=== PATIENT | male | born 1995 | race Caucasian/White ===

== ENCOUNTER 2017-01-02 18:16 | Emergency (ER) | payer OTHER ==
[2017-01-02] MEDS ORDERED: LET GEL TOPICAL 1 EA SYR TP ONE (18:26)
[2017-01-02 18:30] VITALS: BP 122/60; PULSE 75; RESP 20; TEMP 98; O2SAT 95
[2017-01-02] MEDS ORDERED: TDAP ADULT 0.5 ML INJ (BOOSTRIX) IM ONE (18:43)
--- NOTE | 2017-01-02 19:01 | EDPHY ---
H & P Stated Complaint: walking along dumpster and caught arm on metal shaving- removed it Time Seen by Provider: 01/02/17 18:21 HPI/ROS: CHIEF COMPLAINT: Cut on arm HISTORY OF PRESENT ILLNESS: This is a 21-year-old male with a history of type 1 diabetes and bipolar disease who presents with a laceration on his right forearm that was sustained about 5 hours ago. He cut the arm on a piece of metal that was in a dumpster. There was initially a metal splinter in the wound. He removed this himself. He is concerned that there might still be a small foreign body. He is not certain of his tetanus status. No other injuries. He denies numbness or weakness. REVIEW OF SYSTEMS: A ten point review of systems was performed and is negative with the exception of the items mentioned in the HPI. Past medical history: 1. Type 1 diabetes 2. Bipolar disease 3. TMJ Social history: He is a high-school graduate and is between high school and college. No tobacco or alcohol use. He lives with apparent. General Appearance: Alert. Vital signs reviewed. Respiratory: Lungs are clear to auscultation; no wheezes, rales, or rhonchi. Cardiovascular: Regular rate and rhythm; no murmur, rub, or gallop. Gastrointestinal: Abdomen is soft and nontender. Skin: Warm and dry, no rashes on exposed skin, normal color. Back: Nontender to palpation over the thoracolumbar spine. No CVAT. Extremities: There is a 1 cm superficial laceration on the posterior right forearm. There appears to be a very small retained foreign body. No active bleeding. Neurological: Alert and oriented. Moving all four extremities easily and equally. Sensation intact to light touch over the right upper extremity. Optoelectronic Technician strength 5 /5. Pulses: 2+ radial pulse on the right. Psychiatric: Normal affect. - Personal History Current Tetanus Diphtheria and Acellular Pertussis (TDAP): Yes - Medical/Surgical History Hx Asthma: No Hx Chronic Respiratory Disease: No Hx Diabetes: Yes Hx Cardiac Disease: No Hx Renal Disease: No Hx Cirrhosis: No Hx Alcoholism: No Hx HIV/AIDS: No Hx Splenectomy or Spleen Trauma: No Other PMH: type 1 diabetes. bipolar, anxiety - Social History Smoking Status: Never smoked Constitutional: Initial Vital Signs Temperature (C) 36.6 C 01/02/17 18:26 Heart Rate 75 08/25/17 18:26 Respiratory Rate 20 01/02/17 18:26 Blood Pressure 122/60 H 01/02/17 18:26 O2 Sat (%) 95 01/02/17 18:26 O2 Delivery Mode Room Air Allergies/Adverse Reactions: Penicillins Allergy (Verified 08/25/15 11:05) Home Medications: Medication Instructions Recorded Gabapentin [Neurontin 100 MG (RX)] 2 tab 08/28/13 LORazepam [Ativan (*)] 08/28/13 Propranolol HCl [Inderal 20mg (*)] 08/28/13 Humalog 08/25/15 Lantus 100 UNITS/ML (RX) 08/25/15 Levalbuterol Inhaler [Xopenex Hfa 2 puffs IH TID #1 mdi 08/25/15 Inhaler (RX)] [place] Carbonate 08/25/15 Zyprexa 08/25/15 Medical Decision Making ED Course/Re-evaluation: Superficial laceration on his arm was cleaned per protocol. Using magnification there was a small speck of what appeared to be retained metal at the proximal aspect of the wound. This was removed with tweezers. Wound edges were approximated with a single Steri-Strip. Procedure performed by me. Differential Diagnosis: I considered a differential diagnosis of laceration, retained foreign body, muscle injury, vascular injury, tendon injury. - Data Points Medications Given: Discontinued Medications Tetracaine/Epinephrine/Lidocaine (Let Gel Topical) 1 ea TP EDNOW ONE Stop: 01/02/17 18:27 Last Admin: 01/02/17 18:42 Dose: Not Given Departure - Departure Disposition: Home, Routine, Self-Care Clinical Impression: Laceration Condition: Good Instructions: Laceration (ED) Additional Instructions: The Steri-Strips that was placed on your cut will fall off on its own. After that you can apply a Band-Aid if needed. Watch carefully for signs of infection such as fever, redness, swelling, increased pain, warmth, and drainage. You received a tetanus booster today. [facility]errals: [facility] [Other] - As per Instructions
== END 2017-01-02 19:11 | disposition home or self-care (01) ==
LOC: CED 18:16
DX: S51.811A Laceration without foreign body of right forearm, initial encounter (principal); E10.9 Type 1 diabetes mellitus without complications; Z23 Encounter for immunization; W26.8XXA Contact with other sharp object(s), not elsewhere classified, initial encounter

== ENCOUNTER 2017-05-28 15:01 | Emergency (ER) | payer OTHER ==
[2017-05-28 15:08] VITALS: TEMP 98
--- NOTE | 2017-05-28 15:10 | EDPHY ---
H & P Stated Complaint: c/o inhaling Elías En[place] Thinner @ 1230- c/o ST/N/Eyes sting HPI/ROS: HPI CHIEF COMPLAINT: Inhaled pain Thinner. HISTORY OF PRESENT ILLNESS: This patient 21-year-old male, he is an insulin- dependent diabetic type 1 with an insulin pump, last known blood sugar 200 per the patient. He presents emergency room after states that he inhaled paint thinner by accident. 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 Decided to put the respirator on he thinks the respirator was clogged. He states immediately after placing the respirator on he started have some coughing and some burning in his chest. And some throat irritation and Eye burning. He called poison Control about this and they recommend that he goes outside to get fresh air, additionally recommends hot steamy shower, however patient after doing this still felt some burning in his chest he called poison Control back in as recommended have evaluation in the emergency room. Upon arrival to the emergency room the patient appears well nontoxic in no acute distress has no respiratory symptoms. Vital signs are stable. No hypoxia. Clear lung sounds bilaterally. I do not appreciate any significant wheezing. No trouble swallowing. Given the throat burning and chest burning have offered him a GI cocktail DuoNeb breathing treatment and re-evaluate him. Past Medical History: No significant medical history except for insulin- dependent diabetes, bipolar disorder, TMJ. Past Surgical History: Denies any recent surgery. Social History: Denies drugs alcohol tobacco. Family History: Noncontributory ROS REVIEW OF SYSTEMS: A comprehensive 10 point review of systems is otherwise negative aside from elements mentioned in the history of present illness. Exam Constitutional appears well nontoxic in no acute distress triage nursing summary reviewed, vital signs reviewed, awake/alert. Eyes normal conjunctivae and sclera, EOMI, PERRLA. HENT posterior pharynx is normal, no stridor, no visible swelling, normal inspection, atraumatic, moist mucus membranes, no epistaxis, neck supple/ no meningismus, no raccoon eyes. Respiratory clear to auscultation bilaterally, normal breath sounds, no respiratory distress, no wheezing. Cardiovascular rate normal, regular rhythm, no murmur, no edema, distal pulses normal. Gastrointestinal soft, non-tender, no rebound, no guarding, normal bowel sounds, no distension, no pulsatile mass. Genitourinary no CVA tenderness. Musculoskeletal no midline vertebral tenderness, full range of motion, no calf swelling, no tenderness of extremities, no meningismus, good pulses, neurovascularly intact. Skin pink, warm, & dry, no rash, skin atraumatic. Neurologic awake, alert and oriented x 3, AAOx3, moves all 4 extremities equally, motor intact, sensory intact, CN II-XII intact, normal cerebellar, normal vision, normal speech. Psychiatric normal mood/affect. Heme/Lymph/Immune no lymphadenopathy. Differential Diagnosis: Includes but is not limited to in a particular order inhalant irritation, airway swelling, reactive airway disease, bronchitis, spasm , airway burn Medical Decision Making: Plan for this patient DuoNeb breathing treatment, GI cocktail and re-evaluate. Re-evaluation: 1608: Patient is feeling better after DuoNeb breathing treatment. Requesting go home. Vital signs are stable. No acute distress. Albuterol inhaler prescribed. Return precautions discussed Source: Patient - Personal History Current Tetanus Diphtheria and Acellular Pertussis (TDAP): Yes - Medical/Surgical History Hx Asthma: No Hx Chronic Respiratory Disease: No Hx Diabetes: Yes Hx Cardiac Disease: No Hx Renal Disease: No Hx Cirrhosis: No Hx Alcoholism: No Hx HIV/AIDS: No Hx Splenectomy or Spleen Trauma: No Other PMH: type 1 diabetes. bipolar, anxiety - Social History Smoking Status: Never smoked Constitutional: Initial Vital Signs Temperature (C) 36.6 C 05/28/17 15:05 Heart Rate 87 05/28/17 15:05 Respiratory Rate 18 05/28/17 15:05 Blood Pressure 119/85 H 05/28/17 15:05 O2 Sat (%) 97 05/28/17 15:05 O2 Delivery Mode Room Air Allergies/Adverse Reactions: Penicillins Allergy (Verified 08/25/15 11:05) Home Medications: Medication Instructions Recorded Humalog 08/25/15 Levalbuterol Inhaler [Xopenex Hfa 2 puffs IH TID #1 mdi 08/25/15 Inhaler (RX)] [place] Carbonate 08/25/15 Zyprexa 08/25/15 Albuterol [Proventil Inhaler HFA 1 - 2 puffs IH Q4H #1 mdi 05/28/17 (*)] DESVENLAFAXINE SUCCINATE [Pristiq] 50 mg PO 05/28/17 Medical Decision Making - Data Points Medications Given: Discontinued Medications Al Hydroxide/Mg Hydroxide (Maalox Susp) 30 ml PO ONCE ONE Stop: 05/28/17 15:19 Last Admin: 05/28/17 15:55 Dose: Not Given Albuterol/Ipratropium (Duoneb) 3 ml IH EDNOW ONE Stop: 05/28/17 15:37 Last Admin: 05/28/17 15:51 Dose: 3 ml Hyoscyamine Sulfate (Levsin, Hyomax-Sl) 0.25 mg PO ONCE ONE Stop: 05/28/17 15:19 Last Admin: 05/28/17 15:54 Dose: Not Given Lidocaine (Lidocaine 2% Viscous) 15 ml PO ONCE ONE Stop: 05/28/17 15:19 Last Admin: 05/28/17 15:54 Dose: Not Given Departure - Departure Disposition: Home, Routine, Self-Care Clinical Impression: Inhalation injury Condition: Good Instructions: Albuterol (By breathing), Pneumonitis (ED) Additional Instructions: 1. Return emergency room immediately if he develops worsening shortness of breath or trouble breathing. Trouble swallowing. Fever vomiting. 2. Albuterol inhaler 2 puffs every 4-6 hours as needed. 3. Rest, lots of fluids. 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 [facility]errals[facility] [Other] - As per Instructions Prescriptions: Albuterol [Proventil Inhaler HFA (*)] 1 - 2 puffs IH Q4H #1 mdi
[2017-05-28] MEDS ORDERED: HYOSCYAMINE SULFATE 0.125 MG TAB PO ONE (15:18)
[2017-05-28] MEDS ORDERED: MAG HYDROX/AL HYDROX/SIMETH 30 ML UDCUP PO ONE (15:18)
[2017-05-28] MEDS ORDERED: LIDOCAINE 2% VISCOUS 15 ML UDCUP PO ONE (15:18)
[2017-05-28] MEDS ORDERED: IPRATROPIUM/ALBUTEROL 3 ML DEYVIAL IH ONE (15:36)
[2017-05-28 16:22] VITALS: BP 131/77; PULSE 86; RESP 16; O2SAT 96
== END 2017-05-28 16:20 | disposition home or self-care (01) ==
LOC: CED 15:01
DX: T65.891A Toxic effect of other specified substances, accidental (unintentional), initial encounter (principal); J70.8 Respiratory conditions due to other specified external agents; E10.9 Type 1 diabetes mellitus without complications